=== PATIENT | female | born 1940 | race Caucasian/White ===

== ENCOUNTER 2024-09-16 13:39 | Emergency (ER) | payer MEDICARE, OTHER, SELFPAY ==
[2024-09-16 13:44] VITALS: BP 147/70
[2024-09-16 14:36] LABS: ALT (SGPT) 24 U/L (0-35); AST (SGOT) 30 U/L (14-36); Albumin 4.9 g/dl (3.5-5.0); Alkaline Phosphatase 133 U/L (38-126); Blood Urea Nitrogen 14 mg/dl (7-17); Calcium 9.8 mg/dl (8.4-10.2); Carbon Dioxide 26 mmol/L (22-30); Chloride 107 mmol/L (98-107); Glucose 95 mg/dl (70-99); Lipase 60 U/L (23-300); Potassium 4.9 mmol/L (3.5-5.1); Sodium 140 mmol/L (135-145); Total Bilirubin 0.6 mg/dl (0.2-1.3); Total Protein 7.4 g/dl (6.3-8.2); eGFR > 60.00
[2024-09-16 15:24] LABS: Urine Albumin 1+ (Neg - Trace); Urine Bilirubin Negative (Negative); Urine Character Clear (Clear); Urine Color Yellow; Urine Glucose Negative (Negative); Urine Ketone Negative (Negative); Urine Leukocyte Negative (Negative); Urine Nitrite Negative (Negative); Urine Occult Blood Negative (Negative); Urine Urobilinogen Negative (Neg - 1+)
[2024-09-16 15:33] LABS: Urine Amorphous Seen; Urine Bacteria Few (Negative); Urine Red Blood Cell 0-2 /HPF (0-2); Urine White Cell 0-2 /HPF (0-5)
--- NOTE | 2024-09-16 16:50 | ED.GENMED ---
History of Present Illness
General
Chief Complaint: Flank Pain
Source: patient and family
Exam Limitations: none
Time Seen by Provider: 09/16/24 16:01
History of Present Illness
History of Present Illness:
83-year-old female complaining of 1 day of low back pain. Bilateral. Nonpositional. No nausea or vomiting no urinary symptoms. No fever or chills. No abdominal pain. Does radiate slightly around both sides. History of kidney stones however
usually feels more agitated with the kidney stone
Past History
Past History
ED Past Medical History: Hypercholesterolemia, Other (AML) and Other (Kidney stones)
ED Past Surgical History: Orthopedic and Other (Lumpectomy/liposuction)
Phy Exam
Physical Exam
Physical Exam:
GENERAL: Alert and oriented in no apparent distress
EYE: Orbits normal.
NECK: Supple
CARDIAC: Regular rate and rhythm without any obvious murmurs.
LUNGS: Clear breath sounds,normal
ABDOMEN: Soft, without focal tenderness or distention. No CVA tenderness.
NEUROLOGICAL: Alert and oriented , grossly non-focal
SKIN: Warm and dry, no rash or lesion, no discoloration, skin intact.
MUSCULOSKELETAL: No edema,no deformity.Good color. Able to ambulate well. Able to flex at the hip without difficulty. No spinal tenderness. No pain with straight leg raising. Good distal pulses and color. Good lower extremity strength.
PSYCH: Normal and appropriate interaction.
Course
Orders/Labs/Results
Orders:
Orders
09/16/24 13:51
Comprehensive Metabolic Panel Urgent
Lipase Urgent
Urinalysis Reflex To Culture Urgent
Date Specimen was Collected: 09/16/24
Time Specimen was Collected: 13:49
Urine Microscopic Reflex Cult Urgent
09/16/24 16:37
IV Insert/Care/Rem.- Treatment PRN
0.9% Sodium Chloride 500 ml [Nss] 500 ml IV BOLUS
09/16/24 16:48
CT Abd/pelvis W/wo Iv Cont Urgent
Comment:
Reason For Exam: Bilateral low back pain. History of kidney stones
09/16/24 17:26
Complete Blood Count/With Diff Urgent
Abnormal Lab Results
09/16/24 09/16/24
13:51 17:26
WBC 1.1 L* 10^3/uL
(4.8-10.8)
RBC 2.49 L 10^6/uL
(4.20-5.40)
Hgb 9.6 L g/dL
(12.0-16.0)
Hct 27.8 L %
(37.0-47.0)
MCV 111.6 H fL
(81.0-99.0)
MCH 38.6 H pg
(27.0-31.0)
RDW 16.2 H %
(11.5-14.5)
Plt Count 59 L 10^3/uL
(130-400)
Absolute Neuts (auto) 0.5 L* 10^3/uL
(1.4-6.5)
Absolute Lymphs (auto) 0.6 L 10^3/uL
(1.2-3.4)
Absolute Monos (auto) 0.0 L 10^3/uL
(0.1-0.6)
Immature Gran % 0.9 H %
(0-0.5)
Alkaline Phosphatase 133 H U/L
(38-126)
Urine Bacteria (Reflex) Few A
(Negative)
Urine Albumin (Reflex) 1+ A
(Neg - Trace)
09/16/24 17:26
09/16/24 13:51
Vital Signs
Initial and Last Documented VS:
Initial Vital Signs
Temp Pulse Resp BP Pulse Ox
98.2 F 69 16 147/70 98
09/16/24 13:44 09/16/24 13:44 09/16/24 13:44 09/16/24 13:44 09/16/24 13:44
Last Documented Vital Signs
Temp Pulse Resp BP Pulse Ox
98.2 F 60 18 153/75 98
09/16/24 13:44 09/16/24 19:10 09/16/24 17:41 09/16/24 19:10 09/16/24 19:10
MDM/Problems Addressed
Differential Diagnosis Includes:
Although this may be a kidney stone she is not behaving like a kidney stone. She is nothing intra-abdominal he by exam that would support a referral to the back. She has no acute spinal issues. Workup in progress for kidney stone or other
etiology of back pain.
*Radiology
Radiology exam reviewed: radiology read reviewed (T12 compression fracture. Duplicating right collecting system. No other acute changes.)
*Pulse Oximetry
Patient hypoxic: no
*Critical Care Note
Total Time (30-74mins, 75-104mins- exclusive of procedures): Not Applicable
Update Note
Update Note:
Patient's back pain is very likely from the T12 compression fracture nothing to support an infectious etiology. She is borderline neutropenic with low platelets. Hemoglobin is stable. These results were reviewed with her oncology team. No
indication for admission. They will follow-up closely as an outpatient. No infectious symptoms
ED Attending Note
-
Portions of this chart may have been created with voice recognition software.� Occasional wrong word or��sound alike� substitutions may have occurred due to the inherent limitations of voice recognition software.
Discharge Plan
Departure
Patient Disposition: Home (Routine Discharge)
Date of Disposition: 09/16/24
Time of Disposition: 20:43
Patient with high blood pressure during this ER visit?: Yes
Discharge Problem:
Back pain/T12 compression fracture, Neutropenia, Thrombocytopenia, Anemia
Instructions: Neutropenia, Vertebral Compression Fracture ED, BLOOD PRESSURE
Referrals:
Billie Zavala MD [Family Provider] - Follow up in 2-3 days
Activity Restrictions/Additional Instructions:
Tylenol only for pain no anti-inflammatories because of your platelet count
Call your oncologist tomorrow morning to review your labs
Return with any unusual bleeding issue
Interventions
Interventions:
*Risk Screen - Suicide Last Done: 09/16/24 17:41
*General Assessment Last Done: 09/16/24 17:41
*Neglect/Abuse Screening Last Done: 09/16/24 17:41
LP-Znaxwr-Eqkqksikox Assessment Last Done: 09/16/24 17:41
ED-Female Genitourinary Assessment Last Done: 09/16/24 17:41
ED-Musculoskeletal Assessment Last Done: 09/16/24 17:41
Discharge Date and Time
Print Language: BOTSWANAN
[2024-09-16] MEDS: NSS 500 IV (17:25)
[2024-09-16 17:41] VITALS: BP 155/56; BMI 24.7
[2024-09-16 17:57] LABS: % Immature Granulocytes 0.9 % (0-0.5); % Lymphocytes 50.5 % (20.5-51.1); % Monocytes 2.8 % (1.7-9.3); % Neutrophils 45.8 % (42.2-75.2); Absolute Lymphocytes 0.6 10^3/uL (1.2-3.4); Absolute Neutrophils 0.5 10^3/uL (1.4-6.5); Hematocrit 27.8 % (37.0-47.0); Hemoglobin 9.6 g/dL (12.0-16.0); Mean Corp Hgb Conc. 34.5 g/dL (33.0-37.0); Mean Corpuscular Hgb 38.6 pg (27.0-31.0); Mean Corpuscular Volume 111.6 fL (81.0-99.0); Mean Platelet Volume 9.7 fL (7.4-10.4); Nucleated Red Blood Cells % 0 %; Platelet Count 59 10^3/uL (130-400); Red Blood Cell Count 2.49 10^6/uL (4.20-5.40); Red Cell Dist. Width 16.2 % (11.5-14.5); White Blood Cell Count 1.1 10^3/uL (4.8-10.8)
[2024-09-16 19:10] VITALS: BP 153/75
== END 2024-09-16 21:10 | disposition home or self-care (01) ==
LOC: EMR 13:39
PROVIDERS: Emergency Medicine; EMERGENCY PHYSICIAN Emergency Medicine; FAMILY PHYSICIAN Family Medicine
DX: M48.54XA Collapsed vertebra, not elsewhere classified, thoracic region, initial encounter for fracture (principal); D70.9 Neutropenia, unspecified; D69.6 Thrombocytopenia, unspecified; D64.9 Anemia, unspecified; R03.0 Elevated blood-pressure reading, without diagnosis of hypertension; C92.00 Acute myeloblastic leukemia, not having achieved remission; E78.00 Pure hypercholesterolemia, unspecified; Z87.442 Personal history of urinary calculi
CPT/HCPCS: 99284; 96360; 96361; 74178; 80053; 81003; 81015; 83690; 85025; Q9967

== ENCOUNTER 2024-09-24 14:03 | Emergency (ER) | payer MEDICARE, OTHER, SELFPAY ==
[2024-09-24 14:06] VITALS: BP 117/61
--- NOTE | 2024-09-24 17:48 | ED.GENMED ---
History of Present Illness
<PASTOR Velasco - Last Filed: 09/25/24 16:44>
General
Chief Complaint: Bowel Problem
Source: patient
Time Seen by Provider: 09/24/24 17:29
Nursing documentation reviewed up to this point in time: agreed with
History of Present Illness
History of Present Illness:
Patient is an 83-year-old female w/ hx of leukemia presents to the ER complaining of constipation. She has not moved her bowels fully since September 14. She has been using MiraLAX and herbal laxatives. She did try of glycerin suppository today which
did not relieve her symptoms. She denies any nausea vomiting or abdominal pain/ but does complain of distension.
She recently reports she was diagnosed with a compression fracture T12 here in the ER September 16 and has had difficulty straining since then. She is only taking Tylenol however and not taking any narcotics. At that time she presented with back pain
however no trauma.
Past History
<PASTOR Velasco - Last Filed: 09/25/24 16:44>
Past History
ED Past Medical History: Hypercholesterolemia, Other (AML) and Other (Kidney stones)
ED Past Surgical History: Orthopedic and Other (Lumpectomy/liposuction)
Review of Systems
<PASTOR Velasco - Last Filed: 09/25/24 16:44>
Review of Systems
Allergies reviewed?: Yes
All Other Systems: ROS reviewed and negative except as documented in HPI and ROS
Constitutional: Reports no symptoms; Denies fever, fatigue or chills
Respiratory: Reports no symptoms
Cardiac: Reports no symptoms
ABD/GI: Reports constipated; Denies abdominal pain, nausea, vomiting or diarrhea
: Reports no symptoms
Musculoskeletal: Reports no symptoms
Skin: Reports no symptoms
Neurological: Reports no symptoms
Psychiatric: Reports no symptoms
Phy Exam
<PASTOR Velasco - Last Filed: 09/25/24 16:44>
General Physical Exam
General Presentation: no apparent distress
General age: appears stated age
General Skin: warm and dry
General Habitus: elderly
General Mental: alert
General Hydration: appears well hydrated
Gastrointestinal Exam
Gastrointestinal Exam: normal bowel sounds, non tender, soft and other (Abdomen soft nontender, + distension, positive bowel sounds no stool in rectum;)
Neurological Exam
Neurological Exam: alert and oriented x3
Musculoskeletal Exam
Musculoskeletal Exam: full ROM
Skin Exam
Skin Exam: normal color and warm/dry
Psychiatric Exam
Psychiatric Exam: normal mood/affect
Course
<PASTOR Velasco - Last Filed: 09/25/24 16:44>
Orders/Labs/Results
Orders:
Orders
09/24/24 14:09
Obstruct Series W/PA Chest [CR Obstruct Series W/pa Chest] Stat
Comment:
Reason For Exam: constipation.
09/24/24 17:48
Enema- Treatment ONCE
Type: Milk of Molasses
Amount: x1
09/24/24 19:14
IV Insert/Care/Rem.- Treatment PRN
0.9% Sodium Chloride 500 ml [Nss] 500 ml IV BOLUS
09/24/24 19:17
CT Abd/pel W Iv And Oral Contr Urgent
Comment:
Reason For Exam: pain/constipation
Iohexol [Omnipaque] See Protocol PO NOW STA
09/24/24 19:55
Complete Blood Count/With Diff Urgent
Comprehensive Metabolic Panel Urgent
09/24/24 23:44
Magnesium Citrate [Citroma] 300 ml PO ONCE ONE
Abnormal Lab Results
09/24/24
19:55
WBC 0.6 L* 10^3/uL
(4.8-10.8)
RBC 2.38 L 10^6/uL
(4.20-5.40)
Hgb 8.9 L g/dL
(12.0-16.0)
Hct 26.1 L %
(37.0-47.0)
MCV 109.7 H fL
(81.0-99.0)
MCH 37.4 H pg
(27.0-31.0)
RDW 16.7 H %
(11.5-14.5)
Absolute Neuts (auto) 0.1 L* 10^3/uL
(1.4-6.5)
Absolute Lymphs (auto) 0.5 L 10^3/uL
(1.2-3.4)
Absolute Monos (auto) 0.0 L 10^3/uL
(0.1-0.6)
Neutrophils % 8.6 L %
(42.2-75.2)
Lymphocytes % 89.7 H %
(20.5-51.1)
BUN 22 H mg/dl
(7-17)
Glucose 106 H mg/dl
(70-99)
09/24/24 19:55
09/24/24 19:55
Vital Signs
Initial and Last Documented VS:
Initial Vital Signs
Temp Pulse Resp BP Pulse Ox
98.2 F 78 16 117/61 98
09/24/24 14:06 09/24/24 14:06 09/24/24 14:06 09/24/24 14:06 09/24/24 14:06
Last Documented Vital Signs
Temp Pulse Resp BP Pulse Ox
98.2 F 78 16 139/65 96
09/24/24 14:06 09/24/24 14:06 09/24/24 14:06 09/24/24 23:00 09/24/24 23:15
Low Voltage Electrician consulted with Physician
Low Voltage Electrician consulted with physician?: Yes
Name of Physician Consulted: Noh
<Avani Eckert NP - Last Filed: 09/24/24 23:54>
Orders/Labs/Results
Orders:
Orders
09/24/24 14:09
Obstruct Series W/PA Chest [CR Obstruct Series W/pa Chest] Stat
Comment:
Reason For Exam: constipation.
09/24/24 17:48
Enema- Treatment ONCE
Type: Milk of Molasses
Amount: x1
09/24/24 19:14
IV Insert/Care/Rem.- Treatment PRN
0.9% Sodium Chloride 500 ml [Nss] 500 ml IV BOLUS
09/24/24 19:17
CT Abd/pel W Iv And Oral Contr Urgent
Comment:
Reason For Exam: pain/constipation
Iohexol [Omnipaque] See Protocol PO NOW STA
09/24/24 19:55
Complete Blood Count/With Diff Urgent
Comprehensive Metabolic Panel Urgent
09/24/24 23:44
Magnesium Citrate [Citroma] 300 ml PO ONCE ONE
Abnormal Lab Results
09/24/24
19:55
WBC 0.6 L* 10^3/uL
(4.8-10.8)
RBC 2.38 L 10^6/uL
(4.20-5.40)
Hgb 8.9 L g/dL
(12.0-16.0)
Hct 26.1 L %
(37.0-47.0)
MCV 109.7 H fL
(81.0-99.0)
MCH 37.4 H pg
(27.0-31.0)
RDW 16.7 H %
(11.5-14.5)
Absolute Neuts (auto) 0.1 L* 10^3/uL
(1.4-6.5)
Absolute Lymphs (auto) 0.5 L 10^3/uL
(1.2-3.4)
Absolute Monos (auto) 0.0 L 10^3/uL
(0.1-0.6)
Neutrophils % 8.6 L %
(42.2-75.2)
Lymphocytes % 89.7 H %
(20.5-51.1)
BUN 22 H mg/dl
(7-17)
Glucose 106 H mg/dl
(70-99)
09/24/24 19:55
09/24/24 19:55
Vital Signs
Initial and Last Documented VS:
Initial Vital Signs
Temp Pulse Resp BP Pulse Ox
98.2 F 78 16 117/61 98
09/24/24 14:06 09/24/24 14:06 09/24/24 14:06 09/24/24 14:06 09/24/24 14:06
Last Documented Vital Signs
Temp Pulse Resp BP Pulse Ox
98.2 F 78 16 139/65 96
09/24/24 14:06 09/24/24 14:06 09/24/24 14:06 09/24/24 23:00 09/24/24 23:15
<PASTOR Velasco - Last Filed: 09/25/24 16:44>
MDM/Problems Addressed
Differential Diagnosis Includes:
Not limited to constipation less likely by obstruction
MDM/Problems Addressed:
Patient is a 83-year-old female who presents with constipation. Symptoms are consistent with constipation no symptoms of bowel obstruction. She denies any abdominal pain and is nontender on exam.
she is well-appearing no nausea vomiting in no acute distress. No stool /in rectum. Obstruction series shows nonobstructive bowel gas pattern moderate stool/gas in the distal colon.
Patient in no acute distress .
will hold off on additional imaging or labs we will order an enema.
1909:Patient has not had any relief after enema we will check labs and CAT scan. Patient did have a CT 09/16 however is distended on exam we will check for any other causes of distention and constipation.
Care of this time transferred to Veronica Eckert NP
<PASTOR Velasco - Last Filed: 09/25/24 16:44>
*Radiology
Radiology exam reviewed: radiology read reviewed
*Pulse Oximetry
Patient hypoxic: no
<Avani Eckert NP - Last Filed: 09/24/24 23:54>
*Critical Care Note
Total Time (30-74mins, 75-104mins- exclusive of procedures): Not Applicable
<Avani Eckert NP - Last Filed: 09/24/24 23:54>
Update Note
Update Note:
Labs reviewed with patient and spouse. WBC 0.6 and neut 0.1 noted. Patient states that this is 'not unexpected' for her. SHe has had results this low in the past. Last chemo was at the beginning of August, next treatment will be at the end of september.
She will followup with her oncologist at [facility]. SHe will monitor her temp this weekend, return to ED for any evidence of infection.
Given enema earlier today and states she continues to pass stool. SHe denies any abdominal pain. Denies n/v. Would like to go home, feels comfortable going home. CT reveals moderate amt of stool throughout colon WIll give a dose of mag citrate
and then she will continue with miralax as prescied. SHe was given instructions on s/s to return to ED and she is agreeable to plan.
ED Attending Note
<PASTOR Velasco - Last Filed: 09/25/24 16:44>
-
Portions of this chart may have been created with voice recognition software.� Occasional wrong word or��sound alike� substitutions may have occurred due to the inherent limitations of voice recognition software.
Discharge Plan
Departure
Patient Disposition: Home (Routine Discharge)
Date of Disposition: 09/24/24
Time of Disposition: 23:44
Patient with high blood pressure during this ER visit?: No
Condition: Fair
Covid-19: Not Applicable
Discharge Problem:
Acute constipation
Instructions: Constipation, Adult (DC)
Referrals:
Billie Zavala MD [Family Provider]
Activity Restrictions/Additional Instructions:
As discussed please continue MiraLAX and also add Colace. Avoid constipating foods such as bananas. Increase diet high in fresh fruits of vegetables, berries grapes and apples with the skin, prune juice or pear juice. Follow-up with your family
doctor in the next several days.
return if any worsening of symptoms.
Interventions
Interventions:
*Risk Screen - Suicide Last Done: 09/24/24 14:06
*General Assessment Last Done: 09/24/24 18:44
*Neglect/Abuse Screening Last Done: 09/24/24 14:06
*ED- Fall Risk Assessment Last Done: 09/24/24 18:44
*ED COVID-19 Vaccine History Last Done: 09/24/24 18:44
*Nursing Disposition Last Done: 09/24/24 23:58
ZV-Gupcyk-Srppneibak Assessment Last Done: 09/24/24 19:15
Discharge Date and Time
Discharge Date/Time: 09/24/24 23:58
Print Language: GEORGIAN
[2024-09-24 18:05] VITALS: BP 130/53
[2024-09-24 19:13] VITALS: BMI 24.8
[2024-09-24] MEDS: OMNIPAQUE 50 ML PO (19:46)
[2024-09-24] MEDS: NSS 500 IV (20:25)
[2024-09-24 20:38] LABS: ALT (SGPT) 17 U/L (0-35); AST (SGOT) 25 U/L (14-36); Albumin 4.4 g/dl (3.5-5.0); Alkaline Phosphatase 122 U/L (38-126); Blood Urea Nitrogen 22 mg/dl (7-17); Calcium 9.8 mg/dl (8.4-10.2); Carbon Dioxide 27 mmol/L (22-30); Chloride 107 mmol/L (98-107); Estimated Creatinine Clearance 60 ml/min; Glucose 106 mg/dl (70-99); Potassium 4.4 mmol/L (3.5-5.1); Sodium 139 mmol/L (135-145); Total Bilirubin 0.6 mg/dl (0.2-1.3); Total Protein 6.9 g/dl (6.3-8.2); eGFR > 60.00
[2024-09-24 20:41] LABS: Hematocrit 26.1 % (37.0-47.0); Hemoglobin 8.9 g/dL (12.0-16.0); Mean Corp Hgb Conc. 34.1 g/dL (33.0-37.0); Mean Corpuscular Hgb 37.4 pg (27.0-31.0); Mean Corpuscular Volume 109.7 fL (81.0-99.0); Mean Platelet Volume 10.4 fL (7.4-10.4); Platelet Count 168 10^3/uL (130-400); Red Blood Cell Count 2.38 10^6/uL (4.20-5.40); Red Cell Dist. Width 16.7 % (11.5-14.5); White Blood Cell Count 0.6 10^3/uL (4.8-10.8)
[2024-09-24 20:53] LABS: % Lymphocytes 89.7 % (20.5-51.1); % Monocytes 1.7 % (1.7-9.3); % Neutrophils 8.6 % (42.2-75.2); Absolute Lymphocytes 0.5 10^3/uL (1.2-3.4); Absolute Neutrophils 0.1 10^3/uL (1.4-6.5); Nucleated Red Blood Cells % 0 %
[2024-09-24 22:33] VITALS: BP 141/60
[2024-09-24 23:00] VITALS: BP 139/65
[2024-09-24] MEDS: CITROMA 300 ML PO (23:50)
== END 2024-09-24 23:58 | disposition home or self-care (01) ==
LOC: EMR 14:03
PROVIDERS: Nurse Practitioner; EMERGENCY PHYSICIAN Emergency Medicine; FAMILY PHYSICIAN Family Medicine
DX: K59.09 Other constipation (principal); E78.00 Pure hypercholesterolemia, unspecified; C92.00 Acute myeloblastic leukemia, not having achieved remission
CPT/HCPCS: 96360; 99284; 74022; 74177; 80053; 85025; Q9967

== ENCOUNTER → 2024-11-18 13:34 | Outpatient (REF) | payer MEDICARE, OTHER, SELFPAY | LOC: RAD 13:34 | PROVIDERS: ATTENDING PHYSICIAN Family Medicine | DX: R14.0 Abdominal distension (gaseous) (principal) | CPT/HCPCS: 74177; Q9967 ==